=== PATIENT | male | born 1995 | race Caucasian/White ===

== ENCOUNTER 2017-07-28 20:58 | Emergency (ER) | payer OTHER ==
[~2017-07-28] VITALS: Ht 182.9 cm; Wt 90.9 kg
[2017-07-28 20:59] VITALS: BP 139/84
[2017-07-28] MEDS ORDERED: LEVO125T4 PO (21:11)
== END 2017-07-28 22:24 | disposition home or self-care (01) ==
LOC: M ED 20:58
DX: S02.5XXA Fracture of tooth (traumatic), initial encounter for closed fracture (principal); K13.79 Other lesions of oral mucosa; K08.89 Other specified disorders of teeth and supporting structures; X58.XXXA Exposure to other specified factors, initial encounter; Y92.9 Unspecified place or not applicable; Y93.83 Activity, rough housing and horseplay; Y99.9 Unspecified external cause status; Z79.899 Other long term (current) drug therapy; Z88.6 Allergy status to analgesic agent

== ENCOUNTER → 2018-12-13 | Outpatient (CLI) | payer OTHER ==
[~2018-12-13] MED LIST: LEVO125T4 PO
--- NOTE | 2018-12-13 13:34 | REP ---
Three-phase bone scan of the legs: History: Bilateral leg pain. Rule out stress fracture. Comparison radiographs are from November 05, 2018. Technique: 20.9 mCi technetium 99m MDP is injected and standard three-phase imaging of the calves is acquired. Scintigraphic findings: Anterior and posterior flow images are normal. Blood pool images and delayed scan images demonstrate linear areas of increased uptake along the posterior cortex of each distal tibial diaphysis and to a lesser extent along the medial cortex of each tibial diaphysis system with mild stress periostitis or cary splints. There is no evidence of established stress fracture. Impression: Findings consistent with stress periostitis or cary splints in each tibia. No established stress fracture seen. Electronically Signed by Will Summers MD 12/13/2018 06:07 P
== END ==
LOC: M RAD 10:04
PROVIDERS: ATTEND Student in an Organized Health Care Education/Training Program
DX: M79.661 Pain in right lower leg (principal); M79.662 Pain in left lower leg
CPT/HCPCS: 78315; A9503

== ENCOUNTER → 2019-02-04 | Outpatient (CLI) | payer OTHER ==
[~2019-02-04] MED LIST changes: +ISOVUE-370 76% 100ML VIAL (Q9967) As Ordered ONE
--- NOTE | 2019-02-05 07:57 | REP ---
Clinical: Cough. Technique: Axial contrast enhanced images from the thoracic inlet to the upper abdomen with coronal and sagittal re-formations using 100 ml Isovue 370 intravenous contrast material. Findings: The bilateral lung lau are well-aerated, symmetric and clear. No consolidation, significant nodule or mass lesion. No pleural effusion. No pneumothorax. Tracheobronchial tree is patent. No adenopathy. The mediastinum demonstrates normal thoracic aorta, pulmonary vasculature, and heart/pericardium. Thyroid gland is unremarkable. Surrounding musculoskeletal structures intact and without focal osseous abnormality. Impression: Normal contrast enhanced chest CT. Electronically Signed by Alexis Monzon MD 02/05/2019 07:48 A
== END ==
LOC: M RAD 16:16
PROVIDERS: ATTEND Internal Medicine Pulmonary Disease
DX: R05 Cough (principal)
CPT/HCPCS: 71260; Q9967